=== PATIENT | female | born 1995 | race Caucasian/White ===

== ENCOUNTER 2017-11-13 11:21 | Inpatient (IN) ==
[2017-11-13] MEDS ORDERED: Bisacodyl 10 MG Supp RECTAL PRN (14:10)
[2017-11-13] MEDS ORDERED: Aluminum/Magnesium/Simethacone Susp 30 ML UDC PO PRN (14:10)
[2017-11-13] MEDS ORDERED: Acetaminophen 325 MG Tablet PO PRN (14:10)
[2017-11-13] MEDS ORDERED: LORazepam 1 MG Tablet PO PRN (16:23)
[2017-11-13] MEDS ORDERED: Haloperidol Inj 5 MG/ML Ampul IV.PUSH PRN (16:23)
--- NOTE | 2017-11-14 13:58 | P.HPPSY ---
Provisional Diagnosis Admission Date: November 13, 2017 13:16 [place].: Adjustment disorder with mixed disturbance of emotion and conduct,, E marijuana abuse Competence Certification of Person's Competence To Provide Express and Informed Consent I have personally examined Edilberto Andrew, a person being served at [facility] on, November 14, 2017 1346. Express and informed consent means consent voluntarily given in writing, by a competent person, after sufficient explanation and disclosure of the subject matter involved to enable the person to make a knowing and willful decision without any element of force, fraud, deceit, duress, or other form of constraint or coercion. This person is 18 years of age or older, is not now known to be incompetent to consent to treatment with a guardian advocate, and does not have a health care surrogate or proxy currently making medical treatment decisions. I have found this person to be one of the following: XXXX[] Competent to provide express and informed consent, as defined above, for voluntary admission to this facility and is competent to provide express and informed consent for treatment. He/she has the consistent capacity to make well reasoned, willful, and knowing decisions concerning his or her medical or mental health treatment. The person fully and consistently understands the purpose of the admission for examination/placement and is fully capable of personally exercising all rights assured under [place] Incompetent to provide express and informed consent to voluntary admission, and this is incompetent to provide express and informed consent to treatment. The person must be transferred to involuntary status and a petition for a guardian advocate filed with the Circuit Court. [] Refusing to provide express and informed consent to voluntary admission but is competent to provide express and informed consent for treatment. The person must be discharged or transferred to involuntary status. Form shall be completed within 24 hours of a person's arrival at the receiving facility and filed in the clinical record of each person: 1. Admitted on a voluntary basis 2. Permitted to provide express and informed consent to his/her own treatment 3. Allowed to transfer from involuntary to voluntary status 4. Prior to permitting a person to consent to his or her own treatment after having been previously found incompetent to consent to treatment. History of Present Illness Capacity: Has capacity History of Present Illness: Patient is a 22-year-old white female is here being seen screen at [facility] under [place] act with a history of overdose 1-2 days prior multiple substances. This occurred after patient broke up with her live-in boyfriend. It appears she was dating this young man for about 7 years starting when she was 15 years of age they have moved in together just 1-2 months ago and he broke up with her unexpectedly causing this depression and anxiety she states it was a suicide attempt. Patient seen screen at another facility urine toxicology positive for marijuana in benzodiazepines and transferred here. At the present time patient sitting quietly in the room nurse Cintia present throughout session. Patient gives the above history. Says she has had poor sleep over the past few days with crying spells decreased energy decreased concentration and attention. There is vague suicidal ideation though she denies any suicidal ideation intent or plan at the present time. She denies any prior suicide attempts. She does acknowledge history of anxiety with mild panic attacks. She denies voices or visions with this. Says that she leaves here she will be going back to stay with her family. Patient denies any physical or sexual abuse. Denies any significant mental health issues in the family. Denies any other significant medical issues with the family. Though there was a grandmother who committed suicide the patient was quite young. Patient did not graduate high school. They work at the end of the hospital also showed a negative urine toxicology. At the present time patient meets criteria for further inpatient psychiatric assessment over food she does have capacity thus I will lift the [place] act allow the patient signed voluntary. We will start patient on Remeron 15 mg at at bedtime. We will refrain from any benzodiazepines or opiates we will offer her Atarax for anxiety. I did discuss with the patient's mother's name is Varsha who agrees with the brief stay for observation and assessment and start with medication. We will watch her over the weekend consider discharge on Friday if she continues to do good with referral probably to [facility] act for medication management and counseling - Inpatient Certification I certify that the inpatient services were ordered in accordance with Medicare regulations governing the order. This includes certification that hospital inpatient services are reasonable and necessary and in the case of services not specified as inpatient-only under 42 CFR 419.22(n), that they are appropriately provided as inpatient services in accordance to with the 2-midnight benchmark under 43 CFR 412.3(e) I certify that inpatient psychiatric hospital services are medically necessary. Evaluation and treatment and/or diagnostic testing are expected to improve the patient's condition. The patient needs on a daily basis, active treatment furnished directly by or requiring the supervision of inpatient psychiatric facility personnel. Estimated Total Length of Stay (Days): 6 Plans for Post Hospital Care: Home Review of Systems Patient's other complaint is of panic attacks All other systems reviewed negative except as stated in HPI REPLACED BY [facility] - History History Provided By: Patient, Family Member - Medical History Medical History: Medical History (Last Updated 11/14/17 @ 13:53 by Dima Downs MD) Patient denies medical problems - Surgical History Surgical History: Surgical History (Last Updated 11/14/17 @ 13:53 by Dima Downs MD) No history of previous surgery - Social History I have reviewed the patient's Social History: Yes - Tobacco History Second Hand Smoke Exposure: No Tobacco Use In Past 30 Days: No Smoking Status: Never smoker - Alcohol History How Often Do You Have a Drink Containing Alcohol: 2 to 3 times a week - Substance Use History Substance History: Active Abuse - Substance Use Type Marijuana Status: Active Route Used: Inhalation Frequency: 2 grams/1x per day Reason for Use: Get High Alcohol Status: Active Frequency: 1 bottle of alcohol/4-5x per week Benzodiazepines Status: Active Quality Measures - Psychiatric History Psychological trauma history: Patient denies Violence risk to others in the last 6 months: Low Violence risk to self in the last 6 months: Patient recent suicide attempt - Substance Abuse History Drug or alcohol use in the past 12 months: Patient regular marijuana user at times uses Xanax gotten off the streets - Patient Strengths Patient's strengths (minimum of 2): Patient verbal cooperative able access healthcare Medications and Allergies Active Medications: Active Medications Acetaminophen (Tylenol) 650 mg PO Q4H PRN PRN Reason: Pain 1-5 or Temp >101F Al Hydrox/Mg Hydrox/Simethicone (Mag-Al Plus Susp Liq) 30 ml PO Q6H PRN PRN Reason: DYSPEPSIA Al Hydroxide/Mg Hydroxide (Milk Of Magnesia Liq) 30 ml PO Q12H PRN PRN Reason: Mild Constipation Al Hydroxide/Mg Hydroxide (Milk Of Magnesia Liq) 30 ml PO Q12H PRN PRN Reason: Mild Constipation Bisacodyl (Dulcolax Supp) 10 mg RECTAL DAILY PRN PRN Reason: SEVERE CONSITIPATION Diphenhydramine HCl (Benadryl) 50 mg PO HS PRN PRN Reason: INSOMNIA Flumazenil (Romazecon Inj) 0.2 mg IV.PUSH Q1M PRN PRN Reason: OVERSEDATION Haloperidol Lactate (Haldol Inj) 1 mg IV.PUSH Q15M PRN PRN Reason: for severe agitation Hydroxyzine HCl (Atarax) 50 mg PO Q6H PRN PRN Reason: ANXIETY Last Admin: 11/14/17 10:47 Dose: 50 mg Lactulose (Lactulose Liq) 30 ml PO DAILY PRN PRN Reason: SEVERE CONSITIPATION Lorazepam (Ativan) 2 mg PO Q2H PRN PRN Reason: for CIWA 01-14 Mirtazapine (Remeron) 15 mg PO HS MARIBEL Nicotine (Habitrol 21 Mg Patch.24 Hr) 1 patch T-DERMAL DAILY [facility] Last Admin: 11/14/17 10:47 Dose: 1 patch Patch Removal (Remove Old Patch) 1 each T-DERMAL DAILY [facility] Senna/Docusate Sodium (Heike-Colace) 1 tab PO BID [facility] Sennosides (Senokot) 17.2 mg PO Q12H PRN PRN Reason: Moderate Constipation Allergies Allergy/AdvReac Type Severity Reaction Status Date / Time No Known Allergies Allergy Uncoded 01/23/14 02:08 Exam Vital signs: Vital Signs 11/14/17 05:57 Temperature 98.5 F Pulse Rate 83 Respiratory Rate 18 Blood Pressure 118/87 Pulse Oximetry 97 Intake & Output 11/13/17 11/14/17 11/14/17 18:59 06:59 18:59 Weight 68.039 kg Other: Weight On Admission 68 kg Narrative: Patient sitting quietly in her room she is in no acute distress, no complaints of respiratory problems no complaints of chest pain or abdominal pain. Patient moving all 4 extremities without difficulty Mental Status Examination Appearance: Appropriate Consciousness: Alert Orientation: x4 Motor Activity: Normal gait Speech: Unremarkable Language: Adequate Fund of Knowledge: Adequate Attention and Concentration: Adequate Memory: Unremarkable Mood: Sad Affect: Other (Decreased range and intensity) Thought Process & Associations: Intact Thought Content: Appropriate Hallucination Type: None Delusion Type: None Suicidal Ideation: Yes (Denies today) Suicidal Plan: No Suicidal Intention: No Homicidal Ideation: No Homicidal Plan: No Homicidal Intention: No Insight: Fair Judgment: Impulsive Assessment and Plan - Assessment (1) Adjustment disorder with mixed disturbance of emotions and conduct Code(s): F43.25 - Adjustment disorder with mixed disturbance of emotions and conduct Status: Acute (2) Marijuana abuse Code(s): F12.10 - Cannabis abuse, uncomplicated Status: Acute - Plan Plan: Estimated LOS: [2-3] days At this time patient meets criteria for further observation and assessment by food she has capacity lift [place] act allow her to sign voluntary. This was discussed with mother who also agrees to this. Start patient on Remeron 15 mg at bedtime we will refrain from opiates and benzodiazepines. Offer patient Atarax for anxiety problems referral to [facility] management and counseling Justification for Continued Inpatient Stay: This time patient would decompensate a place to a lower level of care Discharge Planning: To be determined probable return home
[2017-11-14] MEDS: Mirtazapine 15 MG Tablet PO SCH (20:51)
[2017-11-14] MEDS: Senna/Docusate Sodium 8.6/50 MG Tablet PO SCH (20:52)
[2017-11-15] MEDS: Senna/Docusate Sodium 8.6/50 MG Tablet PO SCH ×2 (09:16→20:59)
--- NOTE | 2017-11-15 15:38 | P.PNPSY ---
Subjective Remarks: Reviewed electronic medical records and discussed case with staff. Follow-up was conducted in patient's room with SVITLANA Ritchie present. Patient reports that she slept well but has had a poor appetite due to her anxiety. Staff reports she has been compliant cooperative with treatment. She denies any side effects from the medication. Her mood is sad and her affect is somewhat flat. Mental Status Examination Appearance: Appropriate Consciousness: Alert Orientation: x4 Motor Activity: Normal gait Speech: Unremarkable Language: Adequate Fund of Knowledge: Adequate Attention and Concentration: Adequate Memory: Unremarkable Mood: Sad Affect: Other (Decreased range and intensity) Thought Process & Associations: Intact Thought Content: Appropriate Hallucination Type: None Delusion Type: None Suicidal Ideation: Yes (Denies today) Suicidal Plan: No Suicidal Intention: No Homicidal Ideation: No Homicidal Plan: No Homicidal Intention: No Insight: Fair Judgment: Impulsive Assessment and Plan - Assessment (1) Adjustment disorder with mixed disturbance of emotions and conduct Code(s): F43.25 - Adjustment disorder with mixed disturbance of emotions and conduct Status: Acute - Plan Plan: Patient will be reevaluated Friday by the attending psychiatrist. Continue with current treatment plan. Justification for Continued Inpatient Stay: Moving this patient to a less restrictive environment would likely result in decompensation.
[2017-11-15] MEDS: Mirtazapine 15 MG Tablet PO SCH (20:59)
--- NOTE | 2017-11-15 22:26 | ECG ---
Date Performed: 11/14/2017 Time Performed: 10:17:04 PTAGE: 22 years EKG: Sinus rhythm WITH MARKED SINUS ARRHYTHMIA BORDERLINE ECG NO PREVIOUS TRACING DOCTOR: Mita Jauregui Interpretating Date/Time 11/15/2017 22:19:05
[2017-11-16] MEDS: Senna/Docusate Sodium 8.6/50 MG Tablet PO SCH ×2 (09:14→20:42)
--- NOTE | 2017-11-16 14:38 | P.PNPSY ---
Subjective Remarks: Reviewed electronic medical records and discussed case with staff. Follow-up was conducted in common area with SVITLANA Manuel. Patients states that her life has been filled with multiple stressors. She feels that she needs therapy. She states that she realizes that she needs coping strategies , but does not know how to get there. She feels like the Atarax is making her too sleepy and she is still experiencing anxiety. She is sleeping and eating. Participating in group activities. Nursing staff shared that the plan is to discharge on Friday with an [facility] follow up. Review of Systems All other systems reviewed negative except as stated in HPI Mental Status Examination Appearance: Appropriate Consciousness: Alert Orientation: x4 Motor Activity: Normal gait Speech: Unremarkable Language: Adequate Fund of Knowledge: Adequate Attention and Concentration: Adequate Memory: Unremarkable Mood: Sad Affect: Flat Thought Process & Associations: Intact Thought Content: Appropriate Hallucination Type: None Delusion Type: None Suicidal Ideation: No (Denies today) Suicidal Plan: No Suicidal Intention: No Homicidal Ideation: No Homicidal Plan: No Homicidal Intention: No Insight: Adequate Judgment: Adequate Assessment and Plan - Assessment (1) Adjustment disorder with mixed disturbance of emotions and conduct Code(s): F43.25 - Adjustment disorder with mixed disturbance of emotions and conduct Status: Acute - Plan Plan: Patient will be reevaluated Friday by the attending psychiatrist. Continue with current treatment plan. Justification for Continued Inpatient Stay: Moving patient to a less restrictive environment may result in her decompensation.
[2017-11-16] MEDS: Mirtazapine 15 MG Tablet PO SCH (20:42)
[2017-11-17] MEDS: Senna/Docusate Sodium 8.6/50 MG Tablet PO SCH (10:34)
[2017-11-17 11:17] VITALS: BP 94/55; PULSE 71; RESP 18; TEMP 98.4; O2SAT 96
--- NOTE | 2017-11-17 13:35 | P.DSPSY ---
Psychiatry Discharge Summary Inpatient Psychiatric care?: Yes Advance Directives: No Mental Health Advance Directive: No Health Care Proxy: No - Admission Admission Date: November 13, 2017 13:16 - Admission Diagnosis (1) Adjustment disorder with mixed disturbance of emotions and conduct Code(s): F43.25 - Adjustment disorder with mixed disturbance of emotions and conduct (2) Marijuana abuse Code(s): F12.10 - Cannabis abuse, uncomplicated Brief History: Patient is a 22-year-old white female is here being seen screen at [facility] under [place] act with a history of overdose 1-2 days prior multiple substances. This occurred after patient broke up with her live-in boyfriend. It appears she was dating this young man for about 7 years starting when she was 15 years of age they have moved in together just 1-2 months ago and he broke up with her unexpectedly causing this depression and anxiety she states it was a suicide attempt. Patient seen screen at another facility urine toxicology positive for marijuana in benzodiazepines and transferred here. At the present time patient sitting quietly in the room nurse Cintia present throughout session. Patient gives the above history. Says she has had poor sleep over the past few days with crying spells decreased energy decreased concentration and attention. There is vague suicidal ideation though she denies any suicidal ideation intent or plan at the present time. She denies any prior suicide attempts. She does acknowledge history of anxiety with mild panic attacks. She denies voices or visions with this. Says that she leaves here she will be going back to stay with her family. Patient denies any physical or sexual abuse. Denies any significant mental health issues in the family. Denies any other significant medical issues with the family. Though there was a grandmother who committed suicide the patient was quite young. Patient did not graduate high school. They work at the end of the hospital also showed a negative urine toxicology. At the present time patient meets criteria for further inpatient psychiatric assessment over food she does have capacity thus I will lift the [place] act allow the patient signed voluntary. We will start patient on Remeron 15 mg at at bedtime. We will refrain from any benzodiazepines or opiates we will offer her Atarax for anxiety. I did discuss with the patient's mother's name is Varsha who agrees with the brief stay for observation and assessment and start with medication. We will watch her over the weekend consider discharge on Friday if she continues to do good with referral probably to [facility] medication management and counseling Tobacco Use In Past 30 Days: No How Often Do You Have a Drink Containing Alcohol: 2 to 3 times a week Hospital Course: Patient's hospital course was uneventful, he showed compliance with medication from day of admission. She acknowledges the few days she has been here has helped her calm and focus. She has had good conversations with her family members also. She denies suicidality homicidality voices or visions. At this time patient no longer meets [place] criteria or criteria for further psychiatric hospitalization. They should be discharged today with Rx for Remero 15 mg at at bedtime with no refill. Follow up tomorrow with [facility] also strong recommendation - Discharge Discharge Date: 11/17/17 - Discharge Diagnosis (1) Adjustment disorder with mixed disturbance of emotions and conduct Diagnosis: Principal Code(s): F43.25 - Adjustment disorder with mixed disturbance of emotions and conduct Status: Acute (2) Marijuana abuse Diagnosis: Secondary Code(s): F12.10 - Cannabis abuse, uncomplicated Status: Acute Discharge Disposition: Home - Discharge Instructions Discharge Diet: Regular Diet Activities You Can Perform: Regular- No Restrictions - Discharge Time > 30 minutes Mental Status Examination Appearance: Appropriate Consciousness: Alert Orientation: x4 Motor Activity: Normal gait Speech: Unremarkable Language: Adequate Fund of Knowledge: Adequate Attention and Concentration: Adequate Memory: Unremarkable Mood: Sad Affect: Flat Thought Process & Associations: Intact Thought Content: Appropriate Hallucination Type: None Delusion Type: None Suicidal Ideation: No (Denies today) Suicidal Plan: No Suicidal Intention: No Homicidal Ideation: No Homicidal Plan: No Homicidal Intention: No Insight: Adequate Judgment: Adequate Discharge/Advance Care Plan - Results Vital Signs: Last Vital Signs Temp 98.4 F 11/17/17 11:15 Pulse 71 11/17/17 11:15 Resp 18 11/17/17 11:15 BP 94/55 L 11/17/17 11:15 Pulse Ox 96 11/17/17 11:15 Lab Results: Urine toxicology positive for marijuana and benzodiazepines at referring hospital Summary of Procedures: None done Pending Results: None - Medications Number of antipsychotic medications at discharge: 0 - Discharge Care Plan Goals to Promote Your Health: * To prevent worsening of your condition and complications * To maintain your health at the optimal level Directions to Meet Your Goals: Take your medications as prescribed Follow your dietary instruction Follow activity as directed Keep your appointments as scheduled Take your immunizations and boosters as scheduled If your symptoms worsen call your PCP, if no PCP go to Urgent Care Center or Emergency Room For 23/09 questions related to your inpatient stay or results of tests pending at discharge, please contact Dr. Dima Downs MD at Smoking is Dangerous to Your Health. Avoid second hand smoking
== END 2017-11-17 14:50 | disposition home or self-care (01) ==
LOC: H260 13:16
PROVIDERS: ADMIT Psychiatry & Neurology Psychiatry; ATTEND Psychiatry & Neurology Psychiatry